=== PATIENT | male | born 1940 | race Two or more races ===

== ENCOUNTER 2019-04-20 06:39 | Emergency (ER) | payer OTHER ==
[~2019-04-20] VITALS: Ht 167.6 cm; Wt 63.5 kg
[2019-04-20] MEDS ORDERED: VASERETIC 10-21 EACH (07:02)
[2019-04-20] MEDS ORDERED: FORTAMET500 MG (07:02)
[2019-04-20] MEDS ORDERED: ASPIR 8181 MG (07:02)
[2019-04-20] MEDS ORDERED: CIPRO500 MG/5 M (07:03)
[2019-04-20] MEDS ORDERED: ZOCOR20 MG (07:03)
[2019-04-20] MEDS ORDERED: ULTRAM50 MG (07:03)
== END 2019-04-20 10:45 | disposition home or self-care (01) ==
LOC: ER 06:39
DX: R55 Syncope and collapse (principal)

== ENCOUNTER 2020-04-23 09:15 | Inpatient (IN) | payer OTHER ==
[~2020-04-23] VITALS: Ht 162.6 cm; Wt 61.7 kg
[~2020-04-23 09:15] MED LIST: ASPIR 8181 MG; CIPRO500 MG/5 M; FORTAMET500 MG; ULTRAM50 MG; VASERETIC 10-21 EACH; ZOCOR20 MG
[2020-04-30] MEDS ORDERED: XARELTO10 MG PO (07:54)
[2020-04-30] MEDS ORDERED: OXYC1TAB9 PO (07:54)
[2020-04-30] MEDS ORDERED: INTEGRA PLUS C1 EACH PO (07:54)
[2020-04-30] MEDS ORDERED: BACTRIM DS TAB1 EACH PO (07:54)
== END 2020-04-30 13:42 | DRG 470 ==
LOC: SURG 04-28 06:15 → O/R 04-28 06:15 → SURH 04-28 07:15 → SURG 04-28 14:27
PROVIDERS: ADMIT Orthopaedic Surgery Sports Medicine; ATTEND Orthopaedic Surgery Sports Medicine
PROC: 0SRC0J9 Replacement of Right Knee Joint with Synthetic Substitute, Cemented, Open Approach (ICD-10-PCS; principal; 2020-04-28 13:15)
DX: M17.11 Unilateral primary osteoarthritis, right knee (principal); E11.9 Type 2 diabetes mellitus without complications; I10 Essential (primary) hypertension; R55 Syncope and collapse